=== PATIENT | male | born 1965 | race Hispanic/Latino ===

== ENCOUNTER 2024-10-01 08:52 | Outpatient (CLI) | payer OTHER | END 2024-10-01 08:53 | disposition home or self-care (01) | LOC: CSHWCC 08:52 | PROVIDERS: ATTEND Nurse Practitioner Family | DX: T81.31XD Disruption of external operation (surgical) wound, not elsewhere classified, subsequent encounter (principal); L97.215 Non-pressure chronic ulcer of right calf with muscle involvement without evidence of necrosis; L08.9 Local infection of the skin and subcutaneous tissue, unspecified; Z89.511 Acquired absence of right leg below knee | CPT/HCPCS: 11042; 97605; 99213; G0463 ==

== ENCOUNTER 2024-11-01 08:44 | Outpatient (CLI) | payer OTHER | END 2024-11-01 08:45 | disposition home or self-care (01) | LOC: CSHWCC 08:44 | PROVIDERS: ATTEND Nurse Practitioner Family | DX: T81.31XD Disruption of external operation (surgical) wound, not elsewhere classified, subsequent encounter (principal); L97.215 Non-pressure chronic ulcer of right calf with muscle involvement without evidence of necrosis; Z89.511 Acquired absence of right leg below knee | CPT/HCPCS: 97597; 99212; G0463 ==

== ENCOUNTER 2024-11-05 08:45 | Outpatient (CLI) | payer OTHER | END 2024-11-05 08:46 | disposition home or self-care (01) | LOC: CSHWCC 08:45 | PROVIDERS: ATTEND Nurse Practitioner Family | DX: T81.31XD Disruption of external operation (surgical) wound, not elsewhere classified, subsequent encounter (principal); L97.215 Non-pressure chronic ulcer of right calf with muscle involvement without evidence of necrosis; Z89.511 Acquired absence of right leg below knee | CPT/HCPCS: 29581 ==

== ENCOUNTER 2024-11-09 16:01 | Outpatient (CLI) | payer OTHER | END 2024-11-09 16:02 | disposition home or self-care (01) | LOC: CSHWCC 16:01 | PROVIDERS: ATTEND Nurse Practitioner Family | DX: T81.31XD Disruption of external operation (surgical) wound, not elsewhere classified, subsequent encounter (principal); L97.215 Non-pressure chronic ulcer of right calf with muscle involvement without evidence of necrosis; Z89.511 Acquired absence of right leg below knee | CPT/HCPCS: 29581 ==

== ENCOUNTER 2024-11-12 08:49 | Outpatient (CLI) | payer OTHER | END 2024-11-12 08:50 | disposition home or self-care (01) | LOC: CSHWCC 08:49 | PROVIDERS: ATTEND Nurse Practitioner Family | DX: T81.31XD Disruption of external operation (surgical) wound, not elsewhere classified, subsequent encounter (principal); L97.215 Non-pressure chronic ulcer of right calf with muscle involvement without evidence of necrosis; Z89.511 Acquired absence of right leg below knee | CPT/HCPCS: 99212; G0463 ==